=== PATIENT | female | born 2000 ===

== ENCOUNTER → 2024-06-11 11:51 | Outpatient (REF) | payer BC, OTHER, SELFPAY | LOC: CPAP 11:51 | PROVIDERS: ATTENDING PHYSICIAN Obstetrics & Gynecology Gynecology | DX: Z01.419 Encounter for gynecological examination (general) (routine) without abnormal findings (principal); Z11.3 Encounter for screening for infections with a predominantly sexual mode of transmission | CPT/HCPCS: 87491; 87591 ==

== ENCOUNTER → 2025-07-24 13:30 | Outpatient (REF) | payer BC, OTHER, SELFPAY ==
[2025-07-30 22:36] LABS: Chlamydia trachomatis by TMA Negative (Negative); Neisseria gonorrhoeae by TMA Negative (Negative); Specimen Source Vaginal
== END ==
LOC: CLAB 13:30
PROVIDERS: ATTENDING PHYSICIAN Obstetrics & Gynecology Gynecology
DX: Z01.419 Encounter for gynecological examination (general) (routine) without abnormal findings (principal); Z11.3 Encounter for screening for infections with a predominantly sexual mode of transmission
CPT/HCPCS: 87491; 87591